=== PATIENT | female | born 1935 ===

== ENCOUNTER 2020-01-03 10:41 | Outpatient (CLI) | payer MEDICARE ==
--- NOTE | 2020-01-03 11:45 | CT ---
CT CHEST WITH CONTRAST CLINICAL INDICATION: Chest pain and PVCs. COMPARISON: None FINDINGS: Aorta: Atherosclerotic vascular calcifications are seen in the thoracic aorta which is normal in marija jeovanny without evidence of an aortic dissection. Vascular calcifications are also seen in the coronary arteries. Lungs: Calcified granuloma is seen in the right middle lobe. Mild atelectasis is seen at the medial a spect of the right lung base. No noncalcified pulmonary nodule, mass, or pleural effusion is identified. Mediastinum: There is a moderately large hiatal hernia which contains the majority of the stomach as well as a portion of the body and tail of the pancreas. 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 Thyroid gland: Subcentimeter too small to characterize hypodense lesion is seen in the right lobe of the thyroid gland. Osseous structures: Degenerative changes are seen in the spine. There is calcification of the anterio r longitudinal ligament. There is a lucency with sclerotic margins seen in the most lateral aspect of the right humeral head which may be related to either prior injury or subchondral cystic change. Chest wall: No acute findings identified. There are coarse calcifications seen in the left breast. Upper abdomen: Calcified granuloma is seen in the spleen. There is symmetric thickening of the adrena l glands bilaterally which may be related to adrenal hyperplasia. No focal nodule or mass is appreciated. IMPRESSION: 1. Moderately large hiatal hernia with majority of the stomach above the level of the hemidiaphragms. A portion of the pancreas is also above the level of the hemidiaphragms. 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 2. Vascular calcifications in the thoracic aorta and involving the coronary arteries. 3. Subcentimeter too small to characterize hypodense lesion right lobe of the thyroid gland.
[2020-01-03] MEDS ORDERED: Iopamidol 370 76% 100 ML VIAL ONE (14:42)
== END 2020-01-03 10:42 | disposition home or self-care (01) ==
LOC: BICCT 10:41
PROVIDERS: ATTEND Internal Medicine Cardiovascular Disease
DX: I49.3 Ventricular premature depolarization (principal); K44.9 Diaphragmatic hernia without obstruction or gangrene; I70.0 Atherosclerosis of aorta; I25.10 Atherosclerotic heart disease of native coronary artery without angina pectoris; E07.9 Disorder of thyroid, unspecified
CPT/HCPCS: 71260; 82565; Q9967